=== PATIENT | female | born 1960 ===

== ENCOUNTER 2017-10-20 10:11 | Emergency (ER) | payer OTHER ==
[2017-10-20 10:14] VITALS: BMI 31.1
[2017-10-20] MEDS ORDERED: Lidocaine 5% Patch TD STA (10:38)
[2017-10-20] MEDS ORDERED: Lidocaine 5% Patch TD ONE (11:20)
[2017-10-20] MEDS ORDERED: Oxycodone/Acetaminophen 5/325 mg Tab PO STA (14:44)
[2017-10-20 15:03] LABS: BASO % 0.4 % (0.0-2.0); EOS % 0.1 % (0.0-4.0); HEMOGLOBIN 13.6 g/dL (12.0-16.0); LYMPH # 0.6 K/uL (1.0-4.3); LYMPH % 7.8 % (20.0-40.0); MEAN CELL VOLUME 93.1 fl (81.0-99.0); MEAN CORPUSCULAR HEMOGLOBIN 31.8 pg (27.0-31.0); MEAN CORPUSCULAR HGB CONC 34.1 g/dL (33.0-37.0); MEAN PLATELET VOLUME 10.6 fl (7.2-11.7); MONO # 0.2 K/uL (0.0-0.8); MONO % 2.4 % (0.0-10.0); NEUT # 6.5 K/uL (1.8-7.0); NEUT % 89.3 % (50.0-75.0); PLATELET COUNT 206 K/uL (130-400); RED CELL DISTRIBUTION WIDTH 12.8 % (11.5-14.5); WHITE BLOOD COUNT 7.3 K/uL (4.8-10.8)
[2017-10-20 15:18] LABS: BLOOD UREA NITROGEN 15 mg/dl (7-17); CALCIUM 9.7 mg/dL (8.4-10.2); GFR NON-AFRICAN AMERICAN > 60
--- NOTE | 2017-10-20 15:38 | ED PDOC ---
Lower Extremity Pain/Injury Time Seen by Provider: 10/20/17 10:24 Chief Complaint (Nursing): Lower Extremity Problem/Injury Chief Complaint (Provider): Left leg pain History Per: Patient History/Exam Limitations: no limitations Onset/Duration Of Symptoms: Days Current Symptoms Are (Timing): Still Present Additional History Per: Patient Additional Complaint(s): 57yo female, comes to ER with complaints of left leg pain radiating from her left lower back for the past 2-3 days. She states the pain worsens with movement and is localized more to her left upper leg and thigh region. She denies any trauma or injury to the site; also denies any fever, weakness, numbness, bowel/bladder dysfuntion. She reports it is painful to walk. Patient has no other complaints. Past Medical History Reviewed: Historical Data, Nursing Documentation, Vital Signs Vital Signs: Last Vital Signs Temp 98.2 F 10/20/17 10:14 Pulse 66 10/20/17 10:14 Resp 17 10/20/17 10:14 BP 158/92 H 10/20/17 10:14 Pulse Ox 97 10/20/17 10:14 - Medical History PMH: Gall Bladder Disease, HTN Denies: Atrial Fibrillation, Diabetes, Chronic Kidney Disease - Surgical History Surgical History: Endoscopy, - Family History Family History: States: No Known Family Hx Denies: CAD - Living Arrangements Living Arrangements: With Family - Home Medications Home Medications: Ambulatory Orders Medication Instructions Recorded Valsartan/Hydrochlorothiazide 1 tab PO DAILY 10/29/15 [Valsartan-Hctz 160-12.5 mg Tab] Cyclobenzaprine [Cyclobenzaprine 10 mg PO Q8 PRN #9 tab 10/20/17 HCl] Naproxen [Naprosyn] 500 mg PO BID PRN #14 tablet 10/20/17 traMADol [Ultram] 50 mg PO TID PRN #12 tab 10/20/17 - Allergies Allergies/Adverse Reactions: Allergies Allergy/AdvReac Type Severity Reaction Status Date / Time No Known Allergies Allergy Verified 10/20/17 10:30 Review of Systems ROS Statement: Except As Marked, All Systems Reviewed And Found Negative Genitourinary Female: Negative for: Incontinence Musculoskeletal: Positive for: Back Pain, Leg Pain Neurological: Negative for: Weakness, Numbness Physical Exam - Reviewed Nursing Documentation Reviewed: Yes Vital Signs Reviewed: Yes - Physical Exam Appears: Positive for: Non-toxic Head Exam: Positive for: ATRAUMATIC, NORMAL INSPECTION, NORMOCEPHALIC Skin: Positive for: Normal Color Eye Exam: Positive for: Normal appearance Neck: Positive for: Supple Respiratory: Positive for: Normal Breath Sounds Back: Positive for: Other (mild left lower para-spinal tenderness) Extremity: Positive for: Normal ROM (full ROM left leg). Negative for: Pedal Edema, Calf Tenderness, Deformity Neurologic/Psych: Positive for: Alert, Oriented. Negative for: Motor/Sensory Deficits - Laboratory Results Result Diagrams: 10/20/17 14:58 10/20/17 14:58 - ECG O2 Sat by Pulse Oximetry: 97 (RA) Pulse Ox Interpretation: Normal Medical Decision Making Medical Decision Making: Plan: Patient initially treated with analgesics and muscle relaxant. On reassessment, she states the pain has worsened. Labs obtained and XR left hip, Duplex left lower extremity ordered. 1554 US Left lower extremity FINDINGS: 2-D, color and duplex Doppler analysis of the lower extremity venous circulation using routine protocol from the femoral veins through the popliteal veins. Venous compressibility: Normal. Flow and augmentation patterns: Normal. Visualized veins upper third of calf: Normal. Ramires cyst: None. IMPRESSION: No sonographic or Doppler evidence for DVT in left lower extremity. 1555 XR Left hip FINDINGS: BONES: Normal. No fracture. JOINTS: Normal. SOFT TISSUES: Normal. OTHER FINDINGS: None. IMPRESSION: Normal left hip radiographs. UDip negative DC from ED, ambulatory and pain improved. Discussed via [employer] [id number] need for followup and further imaging if pain persists. PMD Dr Goldberg contacted to make aware of visit. Scribe Attestation: Documented by Zuri Haynes acting as a scribe for Solomon Perez DO. Provider Attestation: All medical record entries made by the Scribe were at my direction and personally dictated by me. I have reviewed the chart and agree that the record accurately reflects my personal performance of the history, physical exam, medical decision making, and the department course for this patient. I have also personally directed, reviewed, and agree with the discharge instructions and disposition. Disposition - Clinical Impression Clinical Impression: Sciatica, Leg pain - Patient ED Disposition Is Patient to be Admitted: No Counseled Patient/Family Regarding: Studies Performed, Diagnosis, Need For Followup - Disposition Referrals: Brendan Padilla MD [Staff Provider] - Disposition: Routine/Home Disposition Time: 17:30 Condition: STABLE Additional Instructions: Return to ER for any worse or new symptoms. Take medications as directed. See your PMD for further testing and treatment in next 4-[address] or operate machinery while taking pain medicine or muscle relaxants. Prescriptions: Cyclobenzaprine [Cyclobenzaprine HCl] 10 mg PO Q8 PRN #9 tab PRN Reason: Muscle Spasm Naproxen [Naprosyn] 500 mg PO BID PRN #14 tablet PRN Reason: Pain, Moderate (4-7) traMADol [Ultram] 50 mg PO TID PRN #12 tab PRN Reason: Pain, Moderate (4-7) Instructions: Sciatica, Muscle and Bone Pain (DC) Forms: [facility] ([place]) Print Language: [id number]
[2017-10-20 15:47] LABS: LYMPHOCYTE 9 % (20-50); MONOCYTE 3 % (0-10); NEUTROPHIL 88 % (42-75); PLATELET ESTIMATE NORMAL (NORMAL); TOTAL CELLS COUNTED 100
--- NOTE | 2017-10-20 15:55 | US ---
Date of service: 10/20/2017 HISTORY: LLE pain . PRIORS: None. FINDINGS: 2-D, color and duplex Doppler analysis of the lower extremity venous circulation using routine protocol from the femoral veins through the popliteal veins. Venous compressibility: Normal. Flow and augmentation patterns: Normal. Visualized veins upper third of calf: Normal. Ramires cyst: None. IMPRESSION: No sonographic or Doppler evidence for DVT in left lower extremity.
--- NOTE | 2017-10-20 15:57 | RAD ---
PROCEDURE: Left Hip X-ray Radiographs. HISTORY: L hip and L pelvis pain COMPARISON: None. FINDINGS: BONES: Normal. No fracture. JOINTS: Normal. SOFT TISSUES: Normal. OTHER FINDINGS: None. IMPRESSION: Normal left hip radiographs.
[2017-10-20 17:26] VITALS: TEMP 99
[2017-10-20 18:27] VITALS: BP 142/78; PULSE 73; RESP 18; O2SAT 99
== END 2017-10-20 18:35 | disposition home or self-care (01) ==
LOC: H.ER 10:11
DX: M54.30 Sciatica, unspecified side (principal); M79.605 Pain in left leg; I10 Essential (primary) hypertension
CPT/HCPCS: 73502; 80048; 82550; 85025; 93971; 96372; 99285; J1885